=== PATIENT | female | born 1945 | race Caucasian/White ===

== ENCOUNTER → 2020-12-11 | Outpatient (CLI) | payer OTHER ==
[~2020-12-11] MED LIST: FAMCICLOVIR250 MG PO; MEDROL4 MG PO; NEURONTIN300 MG PO; PROTONIX20 MG PO
== END | disposition home or self-care (01) ==
LOC: RAD 13:55
PROVIDERS: ATTEND Internal Medicine Endocrinology, Diabetes & Metabolism
DX: M16.0 Bilateral primary osteoarthritis of hip (principal); M25.552 Pain in left hip

== ENCOUNTER 2021-09-15 13:59 | Outpatient (CLI) | payer OTHER | END 2021-09-15 14:17 | disposition home or self-care (01) | LOC: TOM 13:59 | PROVIDERS: ATTEND Internal Medicine Pulmonary Disease | DX: J98.4 Other disorders of lung (principal); R06.09 Other forms of dyspnea ==

== ENCOUNTER 2021-10-05 09:51 | Outpatient (CLI) | payer OTHER | END 2021-10-05 09:56 | disposition home or self-care (01) | LOC: RAD 09:51 | DX: J18.9 Pneumonia, unspecified organism (principal) ==

== ENCOUNTER 2025-02-11 14:09 | Outpatient (CLI) | payer OTHER | END 2025-02-11 14:13 | disposition home or self-care (01) | LOC: SONOGRAMA 14:09 | PROVIDERS: ATTEND Physical Medicine & Rehabilitation | DX: M25.511 Pain in right shoulder (principal) ==

== ENCOUNTER → 2025-02-28 | Outpatient (CLI) | payer OTHER | END | disposition home or self-care (01) | LOC: RAD 13:44 → TOM 13:44 | PROVIDERS: ATTEND Internal Medicine Pulmonary Disease | DX: J45.31 Mild persistent asthma with (acute) exacerbation (principal); R91.1 Solitary pulmonary nodule ==